=== PATIENT | female | born 1990 | race Caucasian/White ===

== ENCOUNTER → 2017-02-02 | Outpatient (CLI) | payer BC ==
[2017-02-02 17:05] LABS: URINE APPEARANCE CLEAR (CLEAR); URINE BILIRUBIN NEG (NEG); URINE COLOR YELLOW; URINE NITRITE NEG (NEG); URINE SPECIFIC GRAVITY 1.005 (1.000-1.030); UROBILINOGEN NEG (NEG)
[2017-02-02 17:09] LABS: MANUAL MICROSCOPIC REQUIRED? NO; REVIEW REQ? YES
[2017-02-05 08:05] LABS: CHLAMYDIA TRACH RNA*** NOT DETECTED (NOT DETECTED); GC (NEIS GONORRHOEAE)RNA** NOT DETECTED (NOT DETECTED)
== END | disposition home or self-care (01) ==
LOC: C.LABSPEC 16:20
PROVIDERS: ATTEND Obstetrics & Gynecology
DX: Z34.91 Encounter for supervision of normal pregnancy, unspecified, first trimester (principal); Z3A.00 Weeks of gestation of pregnancy not specified

== ENCOUNTER → 2017-02-02 | Outpatient (CLI) | payer BC ==
[2017-02-02 15:57] LABS: BASO % 0.1 %; BASO ABS # 0.01 K/uL (0-0.2); COMPLETE YES; EOS % 0.5 %; HEMATOCRIT 36.6 % (37-47); IG% 0.3 %; LYMPH % 18.3 %; MEAN CELL VOLUME 85.9 fL (80-100); MEAN CORPUSCULAR HEMOGLOBIN 29.6 pg (25-34); MEAN CORPUSCULAR HGB CONC 34.4 g/dl (32-36); MEAN PLATELET VOLUME 10.5 fL (7.4-10.4); MONO % 4.6 %; NEUT % 76.2 %; PLATELET COUNT 234 K/uL (130-400); RED BLOOD COUNT 4.26 M/uL (4.2-5.4); WHITE BLOOD COUNT 9.31 K/uL (4.8-10.8)
== END | disposition home or self-care (01) ==
LOC: C.LAB1850 14:22
PROVIDERS: ATTEND Obstetrics & Gynecology
DX: Z34.91 Encounter for supervision of normal pregnancy, unspecified, first trimester (principal); Z3A.00 Weeks of gestation of pregnancy not specified

== ENCOUNTER → 2017-06-21 | Outpatient (CLI) | payer BC ==
[2017-06-21 17:15] LABS: HEMATOCRIT 32.2 % (37-47); HEMOGLOBIN 11.1 g/dL (12.0-16.0)
== END | disposition home or self-care (01) ==
LOC: C.LAB1850 16:05
PROVIDERS: ATTEND Obstetrics & Gynecology
DX: Z34.93 Encounter for supervision of normal pregnancy, unspecified, third trimester (principal)

== ENCOUNTER → 2017-08-23 | Outpatient (CLI) | payer BC | END | disposition home or self-care (01) | LOC: C.LABSPEC 13:31 | PROVIDERS: ATTEND Obstetrics & Gynecology | DX: Z34.93 Encounter for supervision of normal pregnancy, unspecified, third trimester (principal) ==

== ENCOUNTER 2017-09-19 06:16 | Inpatient (IN) | payer BC ==
[~2017-09-19] VITALS: Ht 149.9 cm; Wt 77.3 kg
[2017-09-24] MEDS ORDERED: LACTATED RINGER'S 1000ML 1,000 ML IV PRN (07:26)
[2017-09-24] MEDS: LACTATED RINGER'S 1000ML 1,000 ML IV SCH ×2 (07:32→09:24)
[2017-09-24] MEDS ORDERED: FENTANYL CITRATE INJ 50 MCG/1 ML 2 ML VIAL ONE (07:34)
[2017-09-24] MEDS ORDERED: BUPIVACAINE 0.25% 30 ML VIAL ONE (07:34)
[2017-09-24] MEDS ORDERED: EpHEDrine SULFATE INJ 50 MG/ML AMP ONE (07:34)
[2017-09-24] MEDS ORDERED: FENTANYL 2MCG/ML ROPIV 1.25MG/ML 100ML BAG ONE (07:35)
[2017-09-24 07:45] LABS: HEMATOCRIT 37.4 % (37-47); HEMOGLOBIN 12.7 g/dL (12.0-16.0); MEAN CELL VOLUME 88.6 fL (80-100); MEAN CORPUSCULAR HEMOGLOBIN 30.1 pg (25-34); MEAN PLATELET VOLUME 10.7 fL (7.4-10.4); PLATELET COUNT 151 K/uL (130-400); RED CELL DISTRIBUTION WIDTH CV 13.5 % (11.5-14.5); RED CELL DISTRIBUTION WIDTH SD 43.7 fL (36.4-46.3)
[2017-09-24] MEDS ORDERED: LACTATED RINGER'S 1000ML 500 ML IV PRN (08:12)
[2017-09-24] MEDS ORDERED: NALOXONE HCL INJ 1 MG in SODIUM CHLORIDE 0.9% 1000ML 1,000 ML IV PRN (08:12)
[2017-09-24] MEDS ORDERED: EpHEDrine SULFATE INJ 50 MG/ML AMP IV PRN (08:15)
[2017-09-24] MEDS ORDERED: NALBUPHINE HCL INJ 10 MG/ML AMP IV PRN (08:15)
[2017-09-24] MEDS ORDERED: FENTANYL 2MCG/ML ROPIV 1.25MG/ML 100ML BAG EPI PRN (08:15)
[2017-09-24] MEDS ORDERED: DiphenhydrAMINE HCL 50 MG/ML VIAL IV PRN (08:15)
[2017-09-24] MEDS ORDERED: ONDANSETRON INJ 2 MG/ML 2 ML VIAL IV PRN (08:15)
[2017-09-24] MEDS ORDERED: NALOXONE HCL INJ 0.4 MG/1 ML VIAL/CARP IV PRN (08:15)
[2017-09-24] MEDS ORDERED: AMOX500C3 PO (08:45)
[2017-09-24] MEDS ORDERED: PRENTAB26 PO (08:45)
[2017-09-24] MEDS ORDERED: AMOXICILIN (08:47)
[2017-09-24 08:51] VITALS: Ht 149.9 cm; Wt 77.3 kg
[2017-09-24] MEDS ORDERED: OXYTOCIN 30 UNITS/500ML NSS IV ONE (10:47)
[2017-09-24] MEDS ORDERED: OXYTOCIN 30 UNITS/500ML NSS IV PRN (12:00)
[2017-09-24] MEDS ORDERED: BENZOCAINE 20% AER SPR 82.5 GM CAN EXT PRN (12:00)
[2017-09-24] MEDS ORDERED: ACETAMINOPHEN 325 MG TAB PO PRN (12:00)
[2017-09-24] MEDS ORDERED: ACETAMINOPHEN/CODEINE 300/30MG TAB PO PRN ×2 (12:00)
[2017-09-24] MEDS ORDERED: SUPERCREAM 0.870 % 15GM JAR EXT PRN (12:00)
[2017-09-24] MEDS ORDERED: HYDROCORTISONE ACETATE 25 MG SUPP PR PRN (12:00)
[2017-09-24] MEDS ORDERED: LANOLIN OINT EXT PRN (12:00)
--- NOTE | 2017-09-24 12:27 | DELIVERY SUMMARY ---
DATE OF OPERATION: 09/24/2017 The patient is a 27-year-old 3, para 1-0-1-1, EDC at 09/19/2017, who presented in spontaneous labor. Membranes ruptured at 8 cm for thin meconium stained fluid. She did receive effective epidural analgesia. She progressed to full dilation and pushed effectively over intact perineum for delivery of a viable female . There was a very short cord present. The cord was clamped and cut prior to putting the infant on the mother's abdomen for further attention and warming. There was vigorous crying, and the was moving all 4 limbs. The placenta was expressed intact with a 3-vessel cord. A first-degree perineal laceration was repaired with 3-0 chromic in the usual fashion. Estimated blood loss was 300 mL. Mother and infant were doing well after delivery. I attest to the content of the Intraoperative Record and any orders documented therein. Any exception s are noted below.
--- NOTE | 2017-09-24 13:27 | Anesthesia Procedure Note ---
Anesthesia Epidural Removal Nt Date & Time Sep 24, 2017 at 13:26 Vital Signs Pain Intensity: 0.0 Notes Mental Status: alert / awake / arousable, participated in evaluation Nausea / Vomiting: adequately controlled Pain: adequately controlled Airway Patency, RR, SpO2: stable & adequate BP & HR: stable & adequate Hydration State: stable & adequate Neuraxial Anesthesia: was administered Anesthetic Complications: no major complications apparent, pt satisfied with anesthetic care Epidural: removed without complications, with tip intact
[2017-09-24 15:00] VITALS: BP 116/56; PULSE 99; TEMP 36.8
[2017-09-24] MEDS: AMOXICILLIN 500 MG CAP PO SCH (19:47)
[2017-09-24] MEDS: IBUPROFEN 600 MG TAB PO PRN ×2 (19:51→23:58)
[2017-09-24 20:00] VITALS: BP 118/72; PULSE 80; TEMP 36.4
[2017-09-24] MEDS ORDERED: AMOXICILLIN 500 MG CAP PO SCH (20:00)
[2017-09-25 00:10] VITALS: BP 115/64; PULSE 72; TEMP 36.6
[2017-09-25 03:30] VITALS: BP 126/64; PULSE 78; TEMP 36.3
[2017-09-25] MEDS: IBUPROFEN 600 MG TAB PO PRN ×3 (06:16→20:19)
--- NOTE | 2017-09-25 06:39 | Progress Note ---
Subjective September 25, 2017. Subjective conversation w/ patient, physical exam Ambulation: ambulating normally Voiding: no voiding problems Diet Tolerance: Regular Diet Lochia: Moderate Feeding Type: Breast Feeding Pain: 3-4/10 cramping abdominal pain with . Improved with analgesia Review of Systems Constitutional: No fever, No chills Respiratory: No cough, No shortness of breath Cardiac: No chest pain Abdomen: No nausea, No vomiting Objective Vital Signs Date Time Temp Pulse Resp B/P (MAP) Pulse Ox O2 Delivery O2 Flow Rate FiO2 09/25/17 03:30 36.3 78 18 126/64 (84) Room Air 09/25/17 00:10 Room Air 09/25/17 00:10 36.6 72 18 115/64 (81) Room Air 09/24/17 20:00 36.4 80 20 118/72 (87) Room Air 09/24/17 15:00 36.8 99 20 116/56 (76) Physical Exam General Appearance: WELL-APPEARING, WD/WN, NO APPARENT DISTRESS Respiratory/Chest: lungs clear, normal breath sounds Cardiovascular: regular rate, rhythm, no edema Abdomen: non tender, soft Fundus: Firm, Non-Tender, Relation to Umbilicus (1 below) Extremities: no calf tenderness Laboratory Results Last 24 Hours Test 09/24/17 07:34 09/25/17 06:19 White Blood Count 13.30 K/uL Red Blood Count 4.22 M/uL Hemoglobin 12.7 g/dL Hematocrit 37.4 % Mean Corpuscular Volume 88.6 fL Mean Corpuscular Hemoglobin 30.1 pg Mean Corpuscular Hemoglobin Concent 34.0 g/dl RDW Standard Deviation 43.7 fL RDW Coefficient of Variation 13.5 % Platelet Count 151 K/uL Mean Platelet Volume 10.7 fL Medications Current Inpatient Medications Medications (Trade) Dose Ordered Sig/Ventura Route Start Time Stop Time Status Last Admin Dose Admin Lactated Ringer's 1,000 ml @ 125 mls/hr Q8H IV 09/24/17 07:26 09/26/17 07:25 09/24/17 09:24 125 MLS/HR Lactated Ringer's 1,000 ml @ 999 mls/hr Q1H1M PRN IV 09/24/17 07:26 10/24/17 07:25 Oxytocin (Pitocin IV) 30 units UD PRN IV 09/24/17 12:00 10/24/17 11:59 09/24/17 12:25 30 UNITS Benzocaine (Dermoplast Aero Spr) 1 appln PRN PRN EXT 09/24/17 12:00 10/24/17 11:59 Cocaine HCl (Supercream 0.870% Cr) BID PRN EXT 09/24/17 12:00 10/08/17 11:59 Hydrocortisone Acetate (Anusol Hc Supp) 25 mg BID PRN ND 09/24/17 12:00 10/24/17 11:59 Lanolin (Lanolin Oint) PRN PRN EXT 09/24/17 12:00 10/24/17 11:59 Ibuprofen (Motrin Tab) 600 mg Q4H PRN PO 09/24/17 12:00 10/24/17 11:59 09/25/17 06:16 600 MG Acetaminophen (Tylenol Tab) 650 mg Q6H PRN PO 09/24/17 12:00 10/24/17 11:59 Acetaminophen/ Codeine Phosphate (Tylenol w/ Codeine #3 Tab) 1 tab Q4H PRN PO 09/24/17 12:00 10/24/17 11:59 Acetaminophen/ Codeine Phosphate (Tylenol w/ Codeine #3 Tab) 2 tab Q4H PRN PO 09/24/17 12:00 10/24/17 11:59 Bisacodyl (Dulcolax Tab) 5 mg 20 PO 09/25/17 20:00 09/25/17 20:01 Bisacodyl (Dulcolax Supp) 10 mg DAILY PRN ND 09/26/17 07:00 Prenat Multivit/ [place]/Iron/Folic Ac ( Vitamin Tab) 1 tab DAILY PO 09/25/17 08:00 10/25/17 07:59 Amoxicillin (Amoxil Cap) 500 mg TID PO 09/24/17 20:00 09/25/17 14:01 09/24/17 19:47 500 MG Assessment and Plan Post- Day#: 1 Continue Routine Care: Resident Physician Supervision Note: I interviewed and examined the patient. Discussed with Dr. Graff and agree with findings and plan as documented in the note. Any exceptions or clarifications are listed here: [None] Documented By: Ghislaine Chaputa Maya 27 s/p NVD day 1 - A+, Rubella Immune, GBS -ve - pt doing well clinically - Vital Signs reviewed and WNL - will assess Hgb once AM labs become available - Encourage Ambulation, monitor and control pain with Motrin PRN - Encourage Breast Feeding - 500mg amoxicillin x3 doses to finish her course of abx for sinus infection - Pt ready for d/c today and counselled on discharge instructions Vikas Patino, PGY1 Resident Tracking Resident Involvement: Resident Care Provided Care Provided: OB Delivery
[2017-09-25 06:40] LABS: HEMATOCRIT 37.5 % (37-47); HEMOGLOBIN 12.9 g/dL (12.0-16.0)
--- NOTE | 2017-09-25 07:11 | Discharge Instructions ---
Discharge Instructions Date of Service September 25, 2017. Admission Reason for Admission: LABOR Discharge Discharge Diagnosis / Problem: Vaginal Delivery Discharge Goals Goal(s): Routine recovery after delivery Medications Continue Dispensed Medications: supercream, dermaplast, tucks, lansinoh Activity Recommendations Activity Limitations: per Instructions/Follow-up section . Instructions / Follow-Up Instructions / Follow-Up ACTIVITY RECOMMENDATIONS: * Gradual return to full activity over the next 2-3 weeks. * No lifting - nothing heavier than baby over the next 2-3 weeks. * Do not engage in vigorous exercise, sexual activity or sports until cleared by your physician. * Do not drive or operate any motorized equipment until cleared by your physician. * You may shower/bathe daily. MEDICATIONS: For discomfort or pain, you may use Acetaminophen (Tylenol), Ibuprofen (Advil), or Naproxen (Aleve) following the package directions. For constipation you may use Colace following the package directions. BREAST CARE: If you are not breast feeding: * Wear a supportive bra 24 hours a day for one to two weeks. * Avoid stimulating your breasts and nipples as much as possible during the first few weeks after delivery. * When taking a shower, have the warm water hit your back, not breasts. * When your breasts feel full, apply ice packs. Usually three to four times a day helps ease the discomfort. * Take a mild pain medication (Tylenol / Motrin) when you are uncomfortable. If breast feeding: * Use breast milk to lubricate nipples. Lansinoh cream may be used for sore nipples. You do not need to remove cream prior to breast feeding. If using a different brand of cream, check the label for directions regarding removal of cream prior to nursing. * Wear a supportive bra. * If having problems with breasts or breast feeding, call a actuarial consultant or your health care provider. EPISIOTOMY CARE: After delivery, if you have an episiotomy (stitches), the following steps will ease discomfort and aid healing. * For the first 24 hours after delivery, place ice packs next to your episiotomy to help reduce swelling. * After the first 24 hour-period, sitz baths, either portable or in the tub, are suggested. A shower with a shower arm sprayed over the episiotomy may be comforting. * Gia care should be done after each voiding and bowel movement. Squirt warm water from a plastic bottle over the perineum (region of the body between the anus and urinary opening) and pat dry. * Use Dermoplast to ease discomfort. Shake container. [place] directly over the episiotomy. Place a Tucks on a clean sanitary pad next to your episiotomy. SPECIAL CARE INSTRUCTIONS: When you are discharged from the hospital, it is important for you to follow the instructions listed below: * During the first week at home, you should be able to care for yourself and your baby. In addition, the usual light household activities are encouraged. * Limit your activities to the way you feel. Do not try to clean the house or move furniture. Be sensible. * If you actively engage in sports and have done so up until the time of your delivery, you may resume these activities as soon as you feel able. This may take up to one month or even longer. Use good judgment. * Continue to take your vitamins for at least six weeks after the of your baby. * Your diet need not be limited unless you were on a special diet before your delivery. Breast-feeding mothers need around 2500 calories per day and at least 64-80 ounces of fluid per day (8 to 10 glasses). * You should eat foods from the four major food groups. Crash diets or fad diets are to be avoided. Eating lean meats, fresh fruits and vegetables, low-fat dairy products, high fiber foods and a regular exercise program, will help you get back to your pre- weight without putting your health at risk. * Constipation is sometimes a problem after delivery. Take a mild laxative as needed. If breast feeding, Milk of Magnesia is acceptable to use. You may use a suppository or Fleets enema if no episiotomy. * A daily shower or tub bath is suggested. Be sure to thoroughly and gently dry the perineum. * A bloody vaginal discharge will usually continue until around four weeks post . A small amount of bleeding may continue for as long as six weeks. Vaginal discharge changes from the bright red bleeding after delivery to pink then brownish and finally yellowish-pink before becoming white and disappearing. * Bleeding may increase with activity. Your first period may come in 4-8 weeks. If you are breast feeding, your period may be delayed even longer. * [place] (sex) can begin whenever both you and your partner feel comfortable and do not have any form of genital infection. It is recommended that you wait at least six weeks for internal and external healing to occur. If you have questions, please talk to your health care practitioner. A condom should be used to prevent infection and . * Foreplay, gentle intercourse and lubrication is very important the first several times to prevent pain. A water-based lubricant such as K-Y jelly or Astroglide may be used. * If you have RH negative blood and your baby is RH positive, you will receive RHOGAM by injection prior to discharge. The nurse will give you a card to keep with you that has the date and place that you received RHOGAM after delivery. * During your care, you had a Rubella screen done to check for the presence of rubella antibodies in your blood. If your test was negative, you will receive a Rubella vaccine prior to discharge. This vaccine may cause a fever, soreness at the injection site and flu-like symptoms. If these symptoms persist, notify your health care practitioner. is not advised for one month after a Rubella vaccine. * Verbalizes understanding of car seat law as reviewed with patient nursing. * Car Seat hand-out given and reviewed with patient by nursing. * Shaken baby information reviewed with patient by nursing. Call you doctor if: * Heavy bleeding (saturating several pads an hour) or passing clots the size of your fist. * A fever >101 degrees F (38.3 degrees C) on two occasions four hours apart and /or chills. * Unusual pain in the pelvic or vaginal areas. * "Baby Blues" lasting longer than two weeks. If you have any questions or concerns, call your health care practitioner at . FOLLOW UP VISIT: * Please call the office at to schedule a 6 week examination. It is important you keep this appointment. It is important for you to make arrangements for either yearly or twice yearly check-ups thereafter. Current Hospital Diet Patient's current hospital diet: Regular OB Diet Discharge Diet Recommended Diet: Regular Diet Pending Studies Studies pending at discharge: no Medical Emergencies . Who to Call and When: Medical Emergencies: If at any time you feel your situation is an emergency, please call [phone] immediately. . Non-Emergent Contact Non-Emergency issues call your: Primary Care Provider . . "Provider Documentation" section prepared by Vikas Patino. .
[2017-09-25 08:00] VITALS: BP 122/79; PULSE 81; TEMP 36.5; O2SAT 98
[2017-09-25] MEDS ORDERED: PRENATAL VITAMIN TAB PO SCH (08:00)
[2017-09-25] MEDS: PRENATAL VITAMIN TAB PO SCH (08:35)
[2017-09-25] MEDS: AMOXICILLIN 500 MG CAP PO SCH ×2 (08:35→13:36)
[2017-09-25 15:45] VITALS: BP 111/74; PULSE 90; TEMP 36.6
[2017-09-25] MEDS ORDERED: BISACODYL 5 MG TABEC PO SCH (20:00)
[2017-09-26 00:35] VITALS: BP 112/74; PULSE 102; TEMP 36.8
--- NOTE | 2017-09-26 06:38 | Progress Note ---
Subjective September 26, 2017. Subjective conversation w/ patient Ambulation: ambulating normally Voiding: no voiding problems Diet Tolerance: Regular Diet Lochia: Moderate Feeding Type: Breast Feeding Pain: Minimal cramping with breast feeding, relieved by analgesia Review of Systems Constitutional: No fever, No chills Respiratory: No cough Cardiac: No chest pain Abdomen: + nausea, No vomiting Objective Vital Signs Date Time Temp Pulse Resp B/P (MAP) Pulse Ox O2 Delivery O2 Flow Rate FiO2 09/26/17 00:35 36.8 102 18 112/74 (87) Room Air 09/26/17 00:35 Room Air 09/25/17 15:45 Room Air 09/25/17 15:45 36.6 90 18 111/74 (86) Room Air 09/25/17 08:00 36.5 81 18 122/79 (93) 98 Room Air 09/25/17 07:55 Room Air Physical Exam General Appearance: WELL-APPEARING, WD/WN, NO APPARENT DISTRESS Respiratory/Chest: lungs clear, normal breath sounds Cardiovascular: regular rate, rhythm Abdomen: soft Fundus: Firm, Non-Tender, Relation to Umbilicus (2 below) Extremities: no calf tenderness Medications Current Inpatient Medications Medications (Trade) Dose Ordered Sig/Ventura Route Start Time Stop Time Status Last Admin Dose Admin Lactated Ringer's 1,000 ml @ 125 mls/hr Q8H IV 09/24/17 07:26 09/26/17 07:25 09/24/17 09:24 125 MLS/HR Lactated Ringer's 1,000 ml @ 999 mls/hr Q1H1M PRN IV 09/24/17 07:26 10/24/17 07:25 Oxytocin (Pitocin IV) 30 units UD PRN IV 09/24/17 12:00 10/24/17 11:59 09/24/17 12:25 30 UNITS Benzocaine (Dermoplast Aero Spr) 1 appln PRN PRN EXT 09/24/17 12:00 10/24/17 11:59 09/25/17 08:36 1 APPLN Cocaine HCl (Supercream 0.870% Cr) BID PRN EXT 09/24/17 12:00 10/08/17 11:59 Hydrocortisone Acetate (Anusol Hc Supp) 25 mg BID PRN CO 09/24/17 12:00 10/24/17 11:59 Lanolin (Lanolin Oint) PRN PRN EXT 09/24/17 12:00 10/24/17 11:59 Ibuprofen (Motrin Tab) 600 mg Q4H PRN PO 09/24/17 12:00 10/24/17 11:59 09/25/17 20:19 600 MG Acetaminophen (Tylenol Tab) 650 mg Q6H PRN PO 09/24/17 12:00 10/24/17 11:59 09/25/17 15:51 650 MG Acetaminophen/ Codeine Phosphate (Tylenol w/ Codeine #3 Tab) 1 tab Q4H PRN PO 09/24/17 12:00 10/24/17 11:59 Acetaminophen/ Codeine Phosphate (Tylenol w/ Codeine #3 Tab) 2 tab Q4H PRN PO 09/24/17 12:00 10/24/17 11:59 Bisacodyl (Dulcolax Supp) 10 mg DAILY PRN [place] 09/26/17 07:00 Prenat Multivit/ Certified Medical Asst/Iron/Folic Ac ( Vitamin Tab) 1 tab DAILY PO 09/25/17 08:00 10/25/17 07:59 09/25/17 08:35 1 TAB Assessment and Plan Post- Day#: 2 Continue Routine Care: 27 s/p NVD day 1 - A+, Rubella Immune, GBS -ve - pt doing well clinically - Vital Signs reviewed and WNL - Encourage Ambulation, monitor and control pain with Motrin PRN - Encourage Breast Feeding - Pt ready for d/c today and counselled on discharge instructions Resident Physician Supervision Note: I interviewed and examined the patient. Discussed with Dr. Patino and agree with findings and plan as documented in the note. Any exceptions or clarifications are listed here: Doing well, Nausea improved today. Plan d/c. Instructions given. Documented By: Lana Galaviz Resident Tracking Resident Involvement: Resident Care Provided Care Provided: OB Delivery
[2017-09-26] MEDS ORDERED: BISACODYL 10 MG SUPP PR PRN (07:00)
[2017-09-26 07:30] VITALS: BP 112/76; PULSE 95; TEMP 36.5; O2SAT 95
[2017-09-26] MEDS: PRENATAL VITAMIN TAB PO SCH (08:34)
[2017-09-26] MEDS: IBUPROFEN 600 MG TAB PO PRN (08:35)
[2017-09-26 11:28] VITALS: BP_DIAS 76; PULSE 95; TEMP 36.5
== END 2017-09-26 11:28 | disposition home or self-care (01) | DRG 775 ==
LOC: C.LD 09-24 07:17 → C.OBG 09-24 15:05
PROVIDERS: ADMIT Obstetrics & Gynecology; ATTEND Obstetrics & Gynecology
PROC: 0HQ9XZZ Repair Perineum Skin, External Approach (ICD-10-PCS; principal; 2017-09-24)
PROC: 10E0XZZ Delivery of Products of Conception, External Approach (ICD-10-PCS; principal; 2017-09-24)
DX: O70.0 First degree perineal laceration during delivery (principal); Z37.0 Single live birth; Z3A.40 40 weeks gestation of pregnancy

== ENCOUNTER 2021-05-28 03:37 | Inpatient (IN) ==
[2021-05-28] MEDS ORDERED: OXYTOCIN 30 UNITS/500 ML BAG IV PRN ×2 (04:13→11:01)
[2021-05-28 04:38] LABS: Hematocrit (blood only) 30.8 % (37-47); Hemoglobin 9.6 g/dL (12.0-16.0); Mean Corpuscular Hemoglobin 24.8 pg (25-34); Mean Corpuscular Volume 79.6 fL (80-100); Mean Platelet Volume 10.2 fL (7.4-10.4); Platelet Count 184 K/uL (130-400); RDW Coefficient of Variation 14.4 % (11.5-14.5); RDW Standard Deviation 41.5 fL (36.4-46.3); Red Blood Count 3.87 M/uL (4.2-5.4); White Blood Count 10.43 K/uL (4.8-10.8)
[2021-05-28] MEDS: LACTATED RINGER'S 1,000 ML IV PRN ×2 (04:40→07:28)
[2021-05-28 05:03] LABS: Alanine Aminotransferase 9 (12-78); Aspartate Aminotransferase 12 U/L (15-37); BUN Creatinine Ratio 9.4 (10-20); Blood Urea Nitrogen 6 mg/dl (7-18); Calcium 8.8 mg/dl (8.5-10.1); Carbon Dioxide 22 mmol/L (21-32); Chloride 104 mmol/L (98-107); Est GFR (African American) 133.9 ml/min; Est GFR (Non-African American) 115.5 ml/min; Glucose 94 mg/dl (70-99); Potassium 3.5 mmol/L (3.5-5.1); Sodium 133 mmol/L (136-145)
[2021-05-28] MEDS ORDERED: SODIUM CHLORIDE 0.9% INJ 10 ML VIAL ONE (05:03)
[2021-05-28] MEDS ORDERED: ePHEDrine sulfate 50 MG/ML AMP ONE (05:03)
[2021-05-28] MEDS ORDERED: BUPIVACAINE 0.25% 30 ML VIAL ONE (05:03)
[2021-05-28] MEDS ORDERED: fentaNYL 2MCG/ML ROPIVACAINE 1.25MG/ML 100 ML BAG EPI ONE (05:03)
[2021-05-28] MEDS ORDERED: fentaNYL citrate 100 MCG/2 ML VIAL ONE (05:03)
[2021-05-28 05:05] LABS: Albumin Globulin Ratio 0.7 (0.9-2); Alkaline Phosphatase 139 U/L (45-117); Bilirubin,Total 0.2 mg/dl (0.2-1); Globulin 4.1 gm/dl (2.5-4.0); Total Protein 7.1 gm/dl (6.4-8.2)
--- NOTE | 2021-05-28 05:15 | Anesthesiology Consultation ---
Date of Service May 28, 2021 Assessment & Plan (1) Encounter for pre-operative examination: Chart Review Chart Review: Patient NOT seen in Pre Admission Testing and Acceptable Risk for Labor Epidural Consults Requested none History Height/Weight Weight: 77.111 kg Allergies Allergy/AdvReac Type Severity Reaction Status Date / Time No Known Allergies Allergy Verified 05/25/21 13:57 Medications Home Medications Medication Instructions Recorded Confirmed Last Taken prenat.vits,timmy,rbz-ayas-hyhyr 1 tab PO DAILY 10/11/20 05/25/21 Unknown breast pump #1 ea 04/27/21 05/25/21 Unknown Active Medications Generic Name Dose Route Start Last Admin Trade Name Freq PRN Reason Stop Dose Admin Lactated Ringer's 1,000 mls @ 125 mls/hr 05/28/21 04:13 05/28/21 04:40 Lr IV 05/30/21 04:12 999 mls/hr .Q8H PRN Administration L&D Protocol Protocol Past Medical History Medical History 40 weeks gestation of History of chicken pox No pertinent past medical history Posterior tibial tendinitis, right leg Right ankle pain Right ankle swelling Right ankle tendonitis Past Family History Family History Sister Anemia Endometriosis Mother Diabetes Denies family history of Ovarian cancer Breast cancer Colorectal cancer Past Surgical History Surgical History S/P nasal surgery S/P tonsillectomy and adenoidectomy Social History Smoking Status: Former smoker Hx Alcohol Use: No Hx Substance Use: No Physical Exam Vital Signs Last Vital Signs Temp 36.8 C 05/28/21 04:38 Pulse 91 H 05/28/21 04:54 Resp 20 05/28/21 04:38 BP 119/78 05/28/21 04:54 Testing Laboratory Results 05/28/21 04:28 05/28/21 04:28
[2021-05-28 05:26] LABS: Mean Corpuscular Hgb Conc 31.2 g/dL (32-36)
[2021-05-28] MEDS ORDERED: NALOXONE HCL 0.4 MG/1 ML VIAL/CARP IV PRN (05:57)
[2021-05-28] MEDS ORDERED: diphenhydrAMINE 50 MG/ML VIAL IV PRN (05:57)
[2021-05-28] MEDS ORDERED: NALBUPHINE HCL INJ 10 MG/ML AMP IV PRN (05:57)
[2021-05-28] MEDS ORDERED: ONDANSETRON INJ 2 MG/ML 2 ML VIAL IV PRN (05:57)
[2021-05-28] MEDS ORDERED: NALOXONE HCL 1 MG in SODIUM CHLORIDE 0.9% 1000ML 1,000 ML IV PRN (05:57)
[2021-05-28] MEDS ORDERED: fentaNYL 2MCG/ML ROPIVACAINE 1.25MG/ML 100 ML BAG EPI PRN (05:57)
[2021-05-28] MEDS ORDERED: ePHEDrine sulfate 50 MG/ML AMP IV PRN (05:57)
--- NOTE | 2021-05-28 07:46 | History & Physical Report ---
Date of Service May 28, 2021 Assessment & Plan (1) Active labor at term: Plan: admitted, iv, labs--did cmp due to one early elevated bp, all ok. now comfortable with epidural, will see how arom advances labor. categ 1 fetus. Admission and Anticipated Discharge Date Admission Date: May 28, 2021 History of Present Illness Chief Complaint: regular ctx Primary Care Provider: Ignacio Aldridge MD 31yo at 40+wks ega with cc of contractions. Regular and painful. No rom, no vb. +FM PNC uncomplicated. PNL Rh pos, ri, gbs neg OBH: x2 GYNH: no stds, nl paps Allergies Allergy/AdvReac Type Severity Reaction Status Date / Time No Known Allergies Allergy Verified 05/25/21 13:57 Home Medications Medication Instructions Recorded Confirmed Type prenat.vits,timmy,tyd-bfrw-wmzci 1 tab PO DAILY 10/11/20 05/25/21 History breast pump #1 ea 04/27/21 05/25/21 Rx Patient History Medical History 40 weeks gestation of History of chicken pox No pertinent past medical history Posterior tibial tendinitis, right leg Right ankle pain Right ankle swelling Right ankle tendonitis Surgical History S/P nasal surgery S/P tonsillectomy and adenoidectomy Family History Sister Anemia Endometriosis Mother Diabetes Denies family history of Ovarian cancer Breast cancer Colorectal cancer Social History Smoking Status: Former smoker Hx Alcohol Use: No Hx Substance Use: No Preferred Language: Czech Communication Ability: Effective Hearing Ability: Normal Copier Operator Required: No Beliefs That Will Affect Care: None marital status: marital status details: Abhijeet Dow (35) [phone] Current Living Situation: Spouse and Family Current Living Situation Comment: lives with spouse, 2 children, dogs current occupational status: employed 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-[employer] Other Information That Helps Us Care for You: No Feels Safe at Home: Yes Safety Concerns: Feels Safe At This Time Assistive Devices: None Review of Systems as per Subjective / HPI Physical Exam Constitutional: WD/WN, vitals as above Respiratory: normal respiratory effort, lungs clear to auscultation Cardiovascular: Rate/Rhythm: regular rate and regular rhythm Gastrointestinal (Abdomen): soft gravid nt Musculoskeletal: no edema nontender calves Neurologic: grossly normal Psychiatric: A+Ox3, euthymic affect Genitourinary: Manual OB Exam: + cervical dilation 7 cm, + cervical effacement 100%, + station 0 and + amniotic fluid (AROM) clear OB Exam Monitor Tracing: + external FHT monitor used, + external uterine monitor used (q2), + category I and + normal FHT variability Results & Data ([place]) Vital Signs (Past 12 Hours) Vital Signs Temp Pulse Resp BP Pulse Ox 05/28/21 07:38 81 99 05/28/21 07:33 82 98 05/28/21 07:31 86 114/59 L 05/28/21 07:28 95 H 99 05/28/21 07:23 76 97 05/28/21 07:18 80 99 05/28/21 07:16 75 114/64 05/28/21 07:13 80 98 05/28/21 07:08 75 98 05/28/21 07:07 97.7 F 18 05/28/21 07:03 79 100 05/28/21 07:01 71 116/70 05/28/21 06:58 68 96 05/28/21 06:53 86 98 05/28/21 06:48 85 99 05/28/21 06:46 86 118/72 05/28/21 06:43 92 H 99 05/28/21 06:38 80 96 05/28/21 06:33 92 H 99 05/28/21 06:32 100 H 113/66 05/28/21 06:28 80 99 05/28/21 06:23 81 97 05/28/21 06:18 87 98 05/28/21 06:16 89 106/58 L 05/28/21 06:13 90 99 05/28/21 06:08 103 H 98 05/28/21 06:03 97 H 100 05/28/21 06:00 87 119/60 05/28/21 05:58 99 H 100 05/28/21 05:57 94 H 115/61 05/28/21 05:54 101 H 115/59 L 05/28/21 05:53 87 100 05/28/21 05:51 99 H 113/58 L 05/28/21 05:49 100 H 114/55 L 05/28/21 05:48 101 H 100 05/28/21 05:43 111 H 100 05/28/21 05:42 114 H 126/60 05/28/21 05:39 109 H 133/75 05/28/21 05:38 104 H 100 05/28/21 05:36 103 H 132/69 05/28/21 05:33 127 H 151/79 H 100 05/28/21 05:28 126 H 100 05/28/21 05:23 106 H 100 05/28/21 04:54 91 H 119/78 05/28/21 04:38 98.2 F 20 05/28/21 03:54 100 H 150/74 H Coding Level of Care Code None Diagnoses Active labor at term
--- NOTE | 2021-05-28 08:52 | Labor Progress Brief Note ---
Date of Service May 28, 2021 Subjective comfortable Assessment & Plan (1) Active labor at term: Plan: continue current management. fetus category one. anticipate . Admission and Anticipated Discharge Date Admission Date: May 28, 2021 Physical Exam Physical Exam: cx--9/100/0 toco--q2-3 efm--130s with mod variability, accels to 150s, no decels Results & Data ([facility]) Vital Signs (Past 12 Hours) Vital Signs Temp Pulse Resp BP Pulse Ox 05/28/21 08:48 98 H 99 05/28/21 08:47 90 18 136/64 05/28/21 08:43 95 H 98 05/28/21 08:38 71 97 05/28/21 08:33 79 96 05/28/21 08:32 75 111/64 05/28/21 08:28 93 H 98 05/28/21 08:23 70 97 05/28/21 08:18 71 96 05/28/21 08:16 73 112/65 05/28/21 08:13 73 95 05/28/21 08:11 77 94 05/28/21 08:08 93 H 99 05/28/21 08:03 81 97 05/28/21 08:02 74 112/62 05/28/21 07:58 79 97 05/28/21 07:53 103 H 99 05/28/21 07:48 87 98 05/28/21 07:46 77 116/61 05/28/21 07:43 79 98 05/28/21 07:38 81 99 05/28/21 07:33 82 98 05/28/21 07:31 86 114/59 L 05/28/21 07:28 95 H 99 05/28/21 07:23 76 97 05/28/21 07:18 80 99 05/28/21 07:16 75 114/64 05/28/21 07:13 80 98 05/28/21 07:08 75 98 05/28/21 07:07 36.5 C 18 05/28/21 07:03 79 100 05/28/21 07:01 71 116/70 05/28/21 06:58 68 96 05/28/21 06:53 86 98 05/28/21 06:48 85 99 05/28/21 06:46 86 118/72 05/28/21 06:43 92 H 99 05/28/21 06:38 80 96 05/28/21 06:33 92 H 99 05/28/21 06:32 100 H 113/66 05/28/21 06:28 80 99 05/28/21 06:23 81 97 05/28/21 06:18 87 98 05/28/21 06:16 89 106/58 L 05/28/21 06:13 90 99 05/28/21 06:08 103 H 98 05/28/21 06:03 97 H 100 05/28/21 06:00 87 119/60 05/28/21 05:58 99 H 100 05/28/21 05:57 94 H 115/61 05/28/21 05:54 101 H 115/59 L 05/28/21 05:53 87 100 05/28/21 05:51 99 H 113/58 L 05/28/21 05:49 100 H 114/55 L 05/28/21 05:48 101 H 100 05/28/21 05:43 111 H 100 05/28/21 05:42 114 H 126/60 05/28/21 05:39 109 H 133/75 05/28/21 05:38 104 H 100 05/28/21 05:36 103 H 132/69 05/28/21 05:33 127 H 151/79 H 100 05/28/21 05:28 126 H 100 05/28/21 05:23 106 H 100 05/28/21 04:54 91 H 119/78 05/28/21 04:38 36.8 C 20 05/28/21 03:54 100 H 150/74 H Coding Level of Care Code None Diagnoses Active labor at term
[2021-05-28] MEDS ORDERED: BENZOCAINE 20% AER SPR 82.5 GM CAN EXT PRN (11:01)
[2021-05-28] MEDS ORDERED: ACETAMINOPHEN 325 MG TAB PO PRN (11:01)
[2021-05-28] MEDS ORDERED: oxyCODONE/ACETAMINOPHEN 5mg/325mg TAB PO PRN (11:01)
[2021-05-28] MEDS ORDERED: HYDROCORTISONE ACETATE 25 MG SUPP PR PRN (11:01)
[2021-05-28] MEDS ORDERED: DIPHTHERIA/TETANUS/PERTUSSIS 0.5 ML SYR/VIAL IM ONE (11:01)
[2021-05-28] MEDS ORDERED: bisacodyL 10 MG SUPP PR PRN (11:01)
[2021-05-28] MEDS ORDERED: SUPERCREAM 0.870% 15 GM JAR EXT PRN (11:01)
--- NOTE | 2021-05-28 11:01 | Delivery Summary ---
Vaginal Delivery Summary Date of Service May 28, 2021 Vaginal Delivery Summary and 2nd Degree LAC Pre-operative Diagnosis: at 40 3/7 active labor Post-operative Diagnosis: same Procedure: epidural arom second degree laceration and repair EBL: 400cc Anesthesia: epidural Procedure: The patient presented in active labor, underwent epidural and had arom for clear fluid. She progressed to c/c/+1. The patient pushed for 10 minutes to deliver a viable male infant in swapna position. The nose and mouth were bulb suctioned on the perineum and the rest of the infant was then delivered without difficulty. The baby was vigorous. The nose and mouth were again bulb suctioned and the was placed in the maternal abdomen for drying and attention. Cord was clamped and cut at about 30 secs of life. Cord blood obtained. Placenta delivered spontaneous, intact with a three vessel cord. Cervix/sulci/rectum were intact. A second degree perineal laceration was repaired in the normal standard fashion. Hemostasis obtained with dilute pitocin and fundal massage. Apgars were 8/9. Mother and baby doing well at the end of the delivery. [facility] [place] Vaginal Delivery Charge Delivery Type Details: and 2nd Degree LAC
--- NOTE | 2021-05-28 11:41 | Anesthesia Procedure Note ---
Date of Service May 28, 2021 Anesthesia Post Epidural Note Vital Signs Vital Signs: Temp Pulse Resp BP Pulse Ox 36.7 C 93 H 18 115/57 L 99 05/28/21 08:50 05/28/21 11:31 05/28/21 11:17 05/28/21 11:31 05/28/21 10:48 Pain Intensity Lower Abdomen: Pain Intensity: 3 Notes Mental Status: alert / awake / arousable and participated in evaluation Nausea / Vomiting: adequately controlled Pain: adequately controlled Airway Patency, RR, SpO2: stable & adequate BP & HR: stable & adequate Hydration State: stable & adequate Neuraxial Anesthesia: was administered and sensory block is resolving Anesthetic Complications: no major complications apparent and Pt Satisfied with anesthetic care Epidural: Removed without complications and With tip intact
[2021-05-28] MEDS: IBUPROFEN 600 MG TAB PO PRN ×3 (12:49→20:26)
[2021-05-28] MEDS: DOCUSATE SODIUM 100 MG CAP PO SCH (20:26)
[2021-05-29] MEDS: IBUPROFEN 600 MG TAB PO PRN ×3 (00:12→09:11)
--- NOTE | 2021-05-29 07:38 | Obstetrical Progress Note ---
Date of Service May 29, 2021 Assessment & Plan (1) Vaginal delivery: Patient desires d/c today. Instructions given. Call with concerns. Day #:: 1 Subjective Ambulation: ambulating normally Voiding: no voiding problems Passing Gas:: Yes Diet Tolerance:: regular diet Lochia:: Small Feeding Type:: breast feeding Physical Exam Constitutional WD/WN, vitals as above Cardiovascular Extremities: no calf tenderness and no edema Gastrointestinal (Abdomen) soft, nd, nd ff/nt 1 below u Psychiatric A+Ox3, euthymic affect Results & Data ([facility]) Vital Signs (Past 12 Hours) Vital Signs Temp Pulse Resp BP Pulse Ox 05/29/21 03:00 36.7 C 72 16 114/74 98 05/29/21 00:10 36.7 C 84 16 105/66 98
[2021-05-29] MEDS ORDERED: PRENATAL VITAMIN 1 TAB PO SCH (08:00)
[2021-05-29 08:03] LABS: Hematocrit (blood only) 25.5 % (37-47)
[2021-05-29] MEDS: DOCUSATE SODIUM 100 MG CAP PO SCH (08:22)
[2021-05-29] MEDS ORDERED: bisacodyL 5 MG TABEC PO SCH (20:00)
== END 2021-05-29 12:55 | disposition home or self-care (01) | DRG 807 ==
LOC: OPB 03:37 → 4S1 03:41 → 4S2 14:00